=== PATIENT | male | born 1960 | race Caucasian/White ===

== ENCOUNTER → 2016-12-02 | Outpatient (CLI) | payer OTHER ==
[~2016-12-02] MED LIST: ALPR.5T; ASPI-983 PO; ATOR10TA PO; HYDR-32; NITR0.4T SL
--- OUTSIDE RECORDS SUMMARY | 2016-12-02 09:23 | XMS REPORT | Continuity of Care Document ---
Author Author Interface Organization Interface Address Unknown Phone Unavailable Problems Problem Status Onset Date Classification Date Reported Comments Source Medications Medication Details Route Status Patient Instructions Ordering Provider Order Date Source Allergies, Adverse Reactions, Alerts Substance Category Reaction Severity Reaction type Status Date Reported Comments Source Immunizations Immunization Date Given Site Status Last Updated Comments Source Results Order Name Results Value Reference Range Date Interpretation Comments Source Vital Signs Vital Sign Value Date Comments Source Encounters Location Location Details Encounter Type Encounter Number Reason For Visit Attending Provider ADM Date DC Date Status Source Procedures Procedure Code Date Perfomer Comments Source
--- NOTE | 2016-12-04 16:14 | ECHOCARDIOGRAPHY REPORT ---
PROCEDURE PHYSICIAN: LIZETT BURROWS DATE OF PROCEDURE: 12/02/2016 TWO DIMENSIONAL ECHOCARDIOGRAM REPORT PRIMARY PHYSICIAN: OTHER PHYSICIAN: REFERRING PHYSICIAN: [facility] ORDERING PHYSICIAN: INDICATION FOR THE PROCEDURE: Chest pain. MEASUREMENTS DERIVED VALUES LV DIAMETER (LAX) NORMALS NORMALS Diastolic 3.8 (3.6-5.2) Eject. Fract. 60% (60%+/-6%) Systolic (2.3-3.9) Diastolic Vol. % Shortening (0.22-0.42) Systolic Vol. Aortic Root IVS THICKNESS Diastolic 1.1 (0.6-1.1) LVPW THICKNESS Diastolic 1.1 (0.6-1.1) LA DIAMETER Systolic 2.2 (2.1-3.7) FINDINGS: 1. Technical quality is good. 2. The left ventricle is normal in size with mild hypertrophy noted at the base of the septum giving the septum a sigmoid shape. Systolic function appeared to be normal. Estimated ejection fraction 60%. 3. The left atrium is normal in size. No clot or thrombus were seen within the left atrium. 4. The right atrium and right ventricle are normal in size. No clot or thrombus were seen within the right side. 5. Mitral valve is normal in morphology with mild mitral regurgitation noted by color Doppler flow. No mitral valve prolapse. No mitral valve stenosis. Doppler across the mitral valve showed equalization of E and A, which is suggestive diastolic dysfunction. 6. Aortic valve is functioning normally. There is no significant aortic stenosis or regurgitation seen. 7. Tricuspid valve is normal in morphology with mild tricuspid regurgitation noted by color Doppler flow. Doppler across tricuspid valve estimated pulmonary artery pressure of 9+ right atrial pressure. 8. Pulmonic valve is functioning normally. 9. No pericardial effusion. IN CONCLUSION: 1. Normal left ventricular size and systolic function. Mild hypertrophy noted at the base of the septum giving the septum a sigmoid shape. Estimated ejection fraction 60%. Diastolic dysfunction is suggested by Doppler. 2. Mild mitral and tricuspid regurgitation. 3. Estimated pulmonary artery pressure of 15 mmHg. Job ID: [id number] Dictated Date: 12/03/2016 12:50:00 Tunnel Man Date: 12/04/2016 16:11:12 / vince
== END ==
LOC: CARD 09:19
PROVIDERS: ATTEND Internal Medicine Cardiovascular Disease
DX: R07.9 Chest pain, unspecified (principal); R06.09 Other forms of dyspnea; Z72.0 Tobacco use; Z82.49 Family history of ischemic heart disease and other diseases of the circulatory system
CPT/HCPCS: 93306

== ENCOUNTER → 2016-12-07 | Outpatient (CLI) | payer OTHER ==
[~2016-12-07] VITALS: Ht 175.3 cm; Wt 87.1 kg
[~2016-12-07] MED LIST changes: +CATHETER FLUSH 10 ML SYR IV PRN; +REGADENOSON 0.4 MG/5 ML SYR (LEXISCAN) IV ONE
[2016-12-07 13:18] VITALS: BP 149/99
--- NOTE | 2016-12-08 08:15 | STRESS TEST ---
PROCEDURE PHYSICIAN: LIZETT BURROWS DATE OF PROCEDURE: 12/07/2016 LEXISCAN MYOVIEW STRESS TEST REPORT: REFERRING PHYSICIAN: [facility] INDICATION: 1. Chest pain. 2. Dyspnea. BASELINE HEART RATE: 81 BASELINE BLOOD PRESSURE: 149/99. BASELINE EKG: Sinus rhythm with no ischemic changes. IN SUMMARY: The patient was injected with 10.53 mCi of technetium 99 Myoview and the resting images were obtained. Then the patient received 0.4 mg of Lexiscan followed by 28.4 mCi of technetium 99 Myoview. Throughout the test, there were no EKG changes. The resting and stress images were reviewed and compared in the short axis, horizontal long axis, and vertical long axis views. Review of the images showed reversible ischemia involving the mid to apical inferior wall, inferolateral wall. SSS is 9, SDS 3, TID value 0.99. On the gated images, the left ventricle appeared to be normal size with normal contractility. Calculated ejection fraction 56%. IN CONCLUSION: 1. The patient tolerated Lexiscan well. 2. Diaphragmatic attenuation affecting the quality of the images. There is questionable reversible ischemia involving the mid to apical inferior wall and inferolateral wall. 3. Normal left ventricular size with normal contractility. Calculated ejection fraction 56%. Job ID: [id number] Dictated Date: 12/07/2016 16:14:27 Home Security Professional Date: 12/08/2016 08:12:13 / vince
== END ==
LOC: CARD 11:49
PROVIDERS: ATTEND Physician Assistant
DX: R07.9 Chest pain, unspecified (principal); R06.09 Other forms of dyspnea; Z72.0 Tobacco use; Z82.49 Family history of ischemic heart disease and other diseases of the circulatory system
CPT/HCPCS: 78452; 93017

== ENCOUNTER 2016-12-14 11:56 | Day surgery (SDC) | payer SELFPAY ==
[~2016-12-14] VITALS: Ht 175.3 cm; Wt 82.6 kg
[2016-12-14] VITALS (11 sets, daily range): BP systolic 130–153; BP diastolic 50–98
[~2016-12-14 11:56] MED LIST changes: -ASPI-983 PO; -ATOR10TA PO; -CATHETER FLUSH 10 ML SYR IV PRN; -NITR0.4T SL; -REGADENOSON 0.4 MG/5 ML SYR (LEXISCAN) IV ONE
[2016-12-14] MEDS ORDERED: LIDOCAINE 1% INJ 20 ML (XYLOCAINE) VIAL ONE (12:01)
[2016-12-14] MEDS ORDERED: HEParin (CATH LAB) 2,000 ML IV ONE (12:01)
[2016-12-14] MEDS ORDERED: NS IV 1000 ML 1,000 ML ONE (12:01)
[2016-12-14] MEDS: NS IV 1000 ML 1,000 ML IV SCH ×3 (12:50→18:06)
[2016-12-14 12:51] LABS: MEAN PLATELET VOLUME 10.6 FL (7.4-10.4); RED BLOOD COUNT 4.52 10^6/uL (4.35-5.85); RED CELL DISTRIBUTION WIDTH 13.4 % (10.0-14.5); WHITE BLOOD COUNT 7.7 10^3/uL (4.3-11.0)
[2016-12-14 13:02] LABS: INR 0.9 (0.8-1.4); PROTHROMBIN TIME PATIENT 11.9 SEC (12.2-14.7)
[2016-12-14 13:13] LABS: ALANINE AMINOTRANSFERASE 17 U/L (0-55); ALBUMIN 4.1 G/DL (3.2-4.5); ANION GAP 8 MMOL/L (5-14); ASPARTATE AMINO TRANSFERASE 17 U/L (5-34); BILIRUBIN,TOTAL 0.2 MG/DL (0.1-1.0); BLOOD UREA NITROGEN 17 MG/DL (7-18); BUN/CREATININE RATIO 17; CARBON DIOXIDE 24 MMOL/L (21-32); CHLORIDE 111 MMOL/L (98-107); CHOLESTEROL 174 MG/DL (< 200); DIRECT LDL 93 MG/DL (1-129); GFR ESTIMATED > 60; GLUCOSE 114 MG/DL (70-105); POTASSIUM 3.9 MMOL/L (3.6-5.0); SODIUM 143 MMOL/L (135-145); TOTAL PROTEIN 6.8 G/DL (6.4-8.2); TRIGLYCERIDES 200 MG/DL (<150); VLDL CHOLESTEROL 40 MG/DL (5-40)
[2016-12-14] MEDS ORDERED: FLU TRIvalent (5 YOA+) 2016-17 (AFLURIA) 0.5 ML IM ONE (13:15)
--- NOTE | 2016-12-14 13:17 | Diagnostic Imaging Report ---
EXAMINATION: Portable upright radiograph of the chest. INDICATION: Dyspnea. Abnormal stress test. COMPARISON: 02/01/2009. FINDINGS: The lungs appear clear. The heart size is normal. No effusion or pneumothorax. The mediastinum and lisa appear unremarkable. IMPRESSION: Unremarkable exam. Dictated by: Dictated on workstation # [id number]
[2016-12-14] MEDS ORDERED: fentaNYL INJECTION 100 MCG/2 ML AMP ONE ×2 (13:24→14:00)
[2016-12-14] MEDS ORDERED: MIDAZOLAM 5 MG/5 ML (VERSED) VIAL ONE ×2 (13:24→14:00)
[2016-12-14] MEDS ORDERED: diphenhydrAMINE 50 MG/ML INJ (BENADRYL) ONE (13:39)
[2016-12-14] MEDS ORDERED: methylPREDNISolone 125 MG (Solu-MEDROL) VIAL ONE (13:39)
[2016-12-14] MEDS ORDERED: NITROGLYCERIN DRIP 25 MG/D5W 250 ML IV ONE (14:00)
[2016-12-14] MEDS ORDERED: HEParin 1000 UNIT/ML (10ML VIAL) FOR BOLUS ONE (14:01)
--- NOTE | 2016-12-14 14:41 | Discharge Inst-Post CATH ---
Discharge Inst-CATH Post Cardiac Cath D/C Inst Follow Up/Plan Appointment with Dr Amezcua's office in 2-4 weeks CARDIAC CATH DISCHARGE INSTRUCTIONS *Hold Metformin for 48 hours post heart cath. ACTIVITY * Go Home directly and rest. * Limit activity of the leg (or wrist if it was used) for 7 days including aerobics, swimming, jogging, bicycling, etc. * Restrict stair-climbing for 7 days if possible, if not, climb up with your non -cath leg, then bring together on the same step. * Avoid lifting, pushing, pulling or excessive movement of the affected extremity for 7 days. * Customary sexual activity may be resumed after 2 days-use caution not to use a position that strains or causes pain to the affected extremity. * No driving for 24 hours. * NO SMOKING. * Avoid straining for bowel movements for 7 days. * Gentle walking on level ground is allowed. * Returning to work will depend on the type of procedure and the results. Your doctor will discuss this with you. CALL YOUR DOCTOR FOR ANY OF THE FOLLOWING: *If bleeding from the puncture site occurs- Apply gentle pressure to site with clean cloth and call your doctor or EMS. * If a knot or lump forms under the skin, increases in size, or causes pain. * If bruising appears to be worsening or moving further down your leg instead of disappearing. * Temperature above 101 F. CARE OF YOUR GROIN INCISION; * Bruising or purple discoloration of the skin near the puncture site is common. * You may shower only, no bathtub bathing for 5 days. Be careful to avoid slipping as your leg may feel stiff. * If a closure device was used on your femoral artery, please see the attached guide regarding care of the device and your leg. * REMOVE the dressing from your groin the next day after your procedure in the shower. CARE OF YOUR WRIST INCISION; * Bruising or purple discoloration of the skin near the puncture site is common. * You may shower. * DO NOT submerge wrist. * Remove dressing in 24 hours. LIZETT AMEZCUA MD Dec 14, 2016 14:41
[2016-12-14] MEDS ORDERED: PATIENT MAY USE OWN MEDS, ALL PO SCH (14:45)
[2016-12-14] MEDS ORDERED: ASPIRIN E.C. 325 MG (ECOTRIN) TABLET PO NR (15:00)
[2016-12-14] MEDS ORDERED: oxyCODONE/APAP 5/325MG (PERCOCET 5) TABLET PO NR (18:00)
[2016-12-15] VITALS: BP 147/94
[2016-12-15] MEDS: oxyCODONE/APAP 5/325MG (PERCOCET 5) TABLET PO PRN ×2 (00:21→08:17)
[2016-12-15] MEDS: NS IV 1000 ML 1,000 ML IV SCH (00:22)
[2016-12-15 04:00] VITALS: BP 106/67
[2016-12-15] MEDS ORDERED: NITR0.4T SL (08:23)
[2016-12-15] MEDS ORDERED: ATOR10TA PO (08:23)
[2016-12-15] MEDS ORDERED: ASPI-983 PO (08:23)
--- NOTE | 2016-12-15 08:26 | Cardiology Progress Note ---
Subjective Subjective/Events-last exam Patient is laying down in bed, still having some groin discomfort, no hematoma. Mild chest pain on and off Review of Systems General: No Chills, No Night Sweats, No Fatigue, No Malaise, No Appetite, No Other HEENT: No Head Aches, No Visual Changes, No Eye Pain, No Ear Pain, No Dysphasia , No Sinus Congestion, No Post Nasal Drip, No Sore Throat, No Other Pulmonary: No Dyspnea, No Cough, No Pleuritic Chest Pain, No Other Cardiovascular: : Chest PainNo: Edema, Lt Headedness, Orthopnea, Other, Palpitations, Paroxysmal Noc. Dyspnea Objective-Cardiology Exam Last Set of Vital Signs Vital Signs 12/15/16 12/15/16 04:00 08:18 Temp 97.5 Pulse 71 Resp 14 B/P 106/67 Pulse Ox 92 O2 Delivery Room Air Capillary Refill : Less Than 3 Seconds I&O Bad tableGeneral: Alert, Oriented X3, Cooperative HEENT: Atraumatic, PERRLA Neck: Supple, No JVD, No Thyromegaly Lungs: Clear to Auscultation, Normal Air Movement Heart: Regular Rate, Normal S1, Normal S2, No Murmurs Abdomen: Normal Bowel Sounds, Soft, No Tenderness, No Hepatosplenomegaly, No Masses Extremities: No Clubbing, No Cyanosis, No Edema, Normal Pulses, No Tenderness/ Swelling Skin: No Rashes, No Breakdown, No Significant Lesion Neuro: Normal Gait, Normal Speech, Strength at 5/5 X4 Ext, Normal Tone, Sensation Intact Psych/Mental Status: Mental Status NL, Mood NL Results Lab Laboratory Tests 12/14/16 12:43 A/P-Cardiology Admission Diagnosis Chest pain nonspecific neurology Coronary artery disease Hyperlipidemia Tobaccoism Assessment/Plan Chest pain nonspecific etiology secondary to coronary artery disease Coronary artery disease, total occlusion of the right coronary artery receiving collaterals from the left system failed attempt for intervention to the chronic total occlusion, medical therapy is recommended Mild hyperlipidemia, I will start on Lipitor 10 mg an attempt to maximize medical therapy Tobaccoism educated on smoking cessation Patient was started on solid 1 nitroglycerin as needed Clinical Quality Measures DVT/VTE Risk/Contraindication: Risk Factor Score Per Nursin RFS Level Per Nursing on Admit: 2=Moderate LIZETT BURROWS MD Dec 15, 2016 08:26
[2016-12-15] MEDS ORDERED: ASPIRIN E.C. 81 MG (ECOTRIN) TAB PO SCH (09:00)
[2016-12-15 12:00] VITALS: BP 142/91
--- NOTE | 2016-12-15 13:29 | CARDIAC CATHETERIZATION ---
PROCEDURE PHYSICIAN: LIZETT BURROWS DATE OF PROCEDURE: 12/14/2016 BRIEF HISTORY: Mr. Robertson is a 56-year-old gentleman with history of hypertension, hyperlipidemia. He has a strong family history of heart disease, has an abnormal stress test. He was scheduled for left heart catheterization, possible PTCA. PROCEDURE NOTE: After explaining the procedure to the patient, all pros and cons were explained. All questions were answered. The patient signed a consent, then he was placed on the cardiac catheterization laboratory. The right groin was prepped in a sterile fashion. Local anesthesia applied to right groin. 6-[place]cuadorean sheath was placed in the right femoral artery. Combination of right and left Clayton catheter were used to access the right and left coronary system. Multiple views were obtained. Pigtail catheter advanced to the left ventricular cavity. Pressure was measured, no left ventriculogram was done. Pullback LV to aorta was done. At that point, the patient was noted to have total occlusion of the right coronary artery. I proceeded with attempts for angioplasty. The patient was given 5000 unit of heparin. FR guide was used, then I used multiple different wires using BMW, Whisper, Extra support and ChoICE PT floppy without success in crossing the lesion. I even used a balloon 2.0 x 15 mm to stabilized the guide, advanced to the proximal right coronary artery and inflated to 4 atmosphere and attempted to advance the wire without success. At this point the procedure was aborted. Angiogram showed no complication. FINDINGS: HEMODYNAMICS: LV pressure 133/13, end-diastolic pressure of 30, aortic pressure 142/94, end-diastolic mean of 170. ANATOMY: 1. Left main coronary artery is bifurcating to left anterior descending and left circumflex artery with no obstructive disease. 2. The left anterior descending artery is moderate in size with mild irregularity. No significant obstructive disease. 3. The left circumflex artery is moderate in size with mild disease, nonobstructive disease. 4. Right coronary artery has a long area of severe stenosis/total occlusion getting filled by collaterals through the right and from the left system. I attempted with multiple wires and using balloon angioplasty to cross the subtotal occlusion without success. This is considered high risk procedure. Potential complication. I did not want to proceed with any further intervention, especially with good results and the collaterals. CONCLUSION: 1. Total occlusion of the right coronary artery, getting filled by intercoronary collateral from the right and from the left system. Attempt to cross the total occlusion with the wire has failed, in addition to the use of balloon support. 2. Mild disease in the LAD and circumflex artery, giving collateral to the right coronary system. DISCUSSION AND RECOMMENDATION: Medical therapy is recommended. No intervention is needed. Job ID: [id number] Dictated Date: 12/14/2016 14:46:41 Animal Care Service Worker Date: 12/15/2016 13:22:31 / yosi
--- NOTE | 2016-12-15 13:32 | DISCHARGE SUMMARY ---
PROCEDURE PHYSICIAN: LIZETT BURROWS DATE OF PROCEDURE: 12/14/2016 BRIEF HISTORY: Mr. Robertson is a 56-year-old gentleman with history of hypertension, hyperlipidemia. He has a strong family history of heart disease, has an abnormal stress test. He was scheduled for left heart catheterization, possible PTCA. PROCEDURE NOTE: After explaining the procedure to the patient, all pros and cons were explained. All questions were answered. The patient signed a consent, then he was placed on the cardiac catheterization laboratory. The right groin was prepped in a sterile fashion. Local anesthesia applied to right groin. 6-[place] sheath was placed in the right femoral artery. Combination of right and left Clayton catheter were used to access the right and left coronary system. Multiple views were obtained. Pigtail catheter advanced to the left ventricular cavity. Pressure was measured, no left ventriculogram was done. Pullback LV to aorta was done. At that point, the patient was noted to have total occlusion of the right coronary artery. I proceeded with attempts for angioplasty. The patient was given 5000 unit of heparin. FR guide was used, then I used multiple different wires using BMW, Whisper, Extra support and ChoICE PT floppy without success in crossing the lesion. I even used a balloon 2.0 x 15 mm to stabilized the guide, advanced to the proximal right coronary artery and inflated to 4 atmosphere and attempted to advance the wire without success. At this point the procedure was aborted. Angiogram showed no complication. FINDINGS: HEMODYNAMICS: LV pressure 133/13, end-diastolic pressure of 30, aortic pressure 142/94, end-diastolic mean of 170. ANATOMY: 1. Left main coronary artery is bifurcating to left anterior descending and left circumflex artery with no obstructive disease. 2. The left anterior descending artery is moderate in size with mild irregularity. No significant obstructive disease. 3. The left circumflex artery is moderate in size with mild disease, nonobstructive disease. 4. Right coronary artery has a long area of severe stenosis/total occlusion getting filled by collaterals through the right and from the left system. I attempted with multiple wires and using balloon angioplasty to cross the subtotal occlusion without success. This is considered high risk procedure. Potential complication. I did not want to proceed with any further intervention, especially with good results and the collaterals. CONCLUSION: 1. Total occlusion of the right coronary artery, getting filled by intercoronary collateral from the right and from the left system. Attempt to cross the total occlusion with the wire has failed, in addition to the use of balloon support. 2. Mild disease in the LAD and circumflex artery, giving collateral to the right coronary system. DISCUSSION AND RECOMMENDATION: Medical therapy is recommended. No intervention is needed. FINAL DIAGNOSES: 1. Coronary artery disease. 2. Hypertension. 3. Hyperlipidemia. 4. Tobaccoism. Job ID: [id number] Dictated Date: 12/14/2016 14:46:41 Squaring Shear Operator Date: 12/15/2016 13:29:16/yosi
[2016-12-15 15:25] VITALS: BP 123/80
--- NOTE | 2016-12-22 08:32 | Cardiac Procedure Note-CS/ASA ---
Pre-Procedure Note Pre-Op Procedure Note H&P Reviewed The H&P was reviewed, patient examined and no changes noted. Date H&P Reviewed: Dec 14, 2016 Time H&P Reviewed: 08:32 Conscious Sedation Pre-Proced Time Reviewed: 08:32 ASA Class: 3 Airway Mallampati Classification: ([place] appropriate class) I. II. III, IV Lungs Heart ASA score ASA 1: a normal healthy patient ASA 2: a patient with a mild systemic disease (mid diabetes, controlled hypertension, obesity x ASA 3: a patient with a severe systemic disease that limits activity (angina , COPD, prior Myocardial infarction) ASA 4: a patient with an incapacitating disease that is a constant threat to life (CHF, renal failure) ASA 5: a moribund patient not expected to survive 24 hrs. (ruptured aneurysm) ASA 6: a declared brain patient whose organs are being harvested. For emergent operations, add the letter E after the classification Grade 3 Sedation Plan: Analgesia, Amnesia, Plan communicated to team members, Discussed options with patient/fam, Discussed risks with patient/fam Note The patient is an appropriate candidate to undergo the planned procedure, sedation, and anesthesia. The patient immediately re-assessed prior to indication. LIZETT BURROWS MD Dec 22, 2016 08:32
== END 2016-12-15 15:25 ==
LOC: CATH 11:56 → ICU 15:00 → CATH 12-15 15:25
PROVIDERS: ATTEND Internal Medicine Cardiovascular Disease
DX: I25.10 Atherosclerotic heart disease of native coronary artery without angina pectoris (principal); I25.82 Chronic total occlusion of coronary artery; R94.39 Abnormal result of other cardiovascular function study; I10 Essential (primary) hypertension; E78.5 Hyperlipidemia, unspecified; R07.89 Other chest pain; Z79.899 Other long term (current) drug therapy; Z72.0 Tobacco use; Z82.49 Family history of ischemic heart disease and other diseases of the circulatory system
CPT/HCPCS: 36415; 71010; 80053; 80061; 85027; 85347; 85610; 85730; 87081; 93005; 93458

== ENCOUNTER → 2017-06-12 | Outpatient (CLI) | payer OTHER ==
[~2017-06-12] MED LIST changes: +ASPI-983 PO; +ATOR10TA PO; +NITR0.4T SL
--- NOTE | 2017-06-12 10:51 | Diagnostic Imaging Report ---
PA and lateral views of chest. INDICATION: Shortness of breath. FINDINGS: The lungs are hyperinflated with no focal infiltrate. The heart size is normal. No effusion or pneumothorax. The mediastinum and lisa appear unremarkable. IMPRESSION: Hyperinflated clear lungs. Dictated by: Dictated on workstation # [id number]
--- NOTE | 2017-06-12 10:55 | Diagnostic Imaging Report ---
3 views of the lumbar spine. INDICATION: Degenerative changes. FINDINGS: There is minimal right convexity scoliosis centered around L1/L2. There is a grade 1 retrolisthesis of L3 over L4. The vertebral body heights are preserved. There is a prominent anterior osteophytes at multiple levels. Prominent degenerative sclerotic changes at the facet joints of the lower lumbar spine seen. The SI joints appear grossly unremarkable. Surgical clips in the upper right abdomen are seen. There are left flank calcifications which could relate to kidney stones. IMPRESSION: Minimal right convexity scoliosis around L1/L2 level. There are prominent degenerative disc and facet changes mostly involving the mid to lower lumbar spine and grade 1 retrolisthesis of L3 over L4. Dictated by: Dictated on workstation # [id number]
== END ==
LOC: RAD 09:21
PROVIDERS: ATTEND Surgery
DX: M51.36 Other intervertebral disc degeneration, lumbar region (principal); N20.0 Calculus of kidney
CPT/HCPCS: 71020; 72100

== ENCOUNTER → 2018-02-21 | Outpatient (CLI) | payer SELFPAY ==
[2018-02-21 17:26] LABS: CHOLESTEROL 138 MG/DL (< 200); HDL CHOLESTEROL 47 MG/DL (40-60); TRIGLYCERIDES 65 MG/DL (<150); VLDL CHOLESTEROL 13 MG/DL (5-40)
[2018-02-22 16:26] LABS: ALANINE AMINOTRANSFERASE 11 U/L (0-55); ALBUMIN 4.2 GM/DL (3.2-4.5); ALKALINE PHOSPHATASE 76 U/L (40-136); BILIRUBIN,TOTAL 0.8 MG/DL (0.1-1.0); BUN/CREATININE RATIO 16; CARBON DIOXIDE 23 MMOL/L (21-32); CHLORIDE 109 MMOL/L (98-107); CREATININE SERUM 1.06 MG/DL (0.60-1.30); GFR ESTIMATED > 60; GLUCOSE 105 MG/DL (70-105); POTASSIUM 4.2 MMOL/L (3.6-5.0); SODIUM 140 MMOL/L (135-145); TOTAL PROTEIN 6.9 GM/DL (6.4-8.2)
== END ==
LOC: LAB 16:46
PROVIDERS: ATTEND Physician Assistant
DX: R07.89 Other chest pain (principal); E78.5 Hyperlipidemia, unspecified; I34.0 Nonrheumatic mitral (valve) insufficiency; F43.10 Post-traumatic stress disorder, unspecified; Z72.0 Tobacco use
CPT/HCPCS: 36415; 80053; 80061

== ENCOUNTER → 2018-03-02 | Outpatient (CLI) | payer SELFPAY | LOC: CARD 07:56 | PROVIDERS: ATTEND Physician Assistant | DX: R07.89 Other chest pain (principal); E78.5 Hyperlipidemia, unspecified; I34.0 Nonrheumatic mitral (valve) insufficiency; F43.10 Post-traumatic stress disorder, unspecified; Z72.0 Tobacco use | CPT/HCPCS: 93225; 93226 ==

== ENCOUNTER → 2018-04-30 | Outpatient (CLI) | payer SELFPAY ==
[2018-04-30 13:49] LABS: ALANINE AMINOTRANSFERASE 11 U/L (0-55); ALBUMIN 3.8 GM/DL (3.2-4.5); ALKALINE PHOSPHATASE 73 U/L (40-136); BILIRUBIN,TOTAL 0.8 MG/DL (0.1-1.0); BUN/CREATININE RATIO 14; CALCIUM 8.7 MG/DL (8.5-10.1); CARBON DIOXIDE 23 MMOL/L (21-32); CHLORIDE 112 MMOL/L (98-107); CHOLESTEROL 147 MG/DL (< 200); GFR ESTIMATED > 60; GLUCOSE 109 MG/DL (70-105); HDL CHOLESTEROL 37 MG/DL (40-60); SODIUM 142 MMOL/L (135-145); TOTAL PROTEIN 6.2 GM/DL (6.4-8.2); TRIGLYCERIDES 110 MG/DL (<150); VLDL CHOLESTEROL 22 MG/DL (5-40)
== END ==
LOC: CARD 12:40
PROVIDERS: ATTEND Internal Medicine Cardiovascular Disease
DX: I10 Essential (primary) hypertension (principal); E78.2 Mixed hyperlipidemia; R07.89 Other chest pain; R00.2 Palpitations; R06.02 Shortness of breath; J45.909 Unspecified asthma, uncomplicated
CPT/HCPCS: 36415; 80053; 80061; 93306

== ENCOUNTER 2020-11-23 22:17 | Emergency (ER) | payer MEDICARE ==
[~2020-11-23] VITALS: Ht 175 cm; Wt 79.4 kg
[~2020-11-23 22:17] MED LIST changes: +ASPI-1238 PO; -ASPI-983 PO
--- NOTE | 2020-11-23 23:15 | ED Neck-Back Pain/Injury ---
General Chief Complaint: Head/Cervical Problems Stated Complaint: NECK PAIN Source of Information: Patient History of Present Illness Date Seen by Provider: Nov 23, 2020 Time Seen by Provider: 22:35 Initial Comments PT ARRIVES VIA POV FROM HOME C/O POSTERIOR NECK PAIN--WORSE ON RIGHT PAIN RADIATES TO POSTERIOR SCALP PT STATES HIS NECK STARTED HURTING OVER A WEEK AGO--NO KNOWN INJURY STATES HE WENT TO WALK-IN CLINIC AT [facility] LAST WEEK FOR THIS PROBLEM AND WAS PRESCRIBED A STEROID AND FLEXERIL. STATES THOSE HELPED, AND STATES HE FINISHED MEDICATIONS ON 11/19/20--HOWEVER, PER MED RECONCILIATION, PT FILLED RX'S FOR FLEXERIL, MELOXICAM, GABAPENTIN ON 10/02/20 AT [facility]. NO RX'S FILLED SINCE THEN. ALSO FILLED THESE SAME RX'S IN MAY. STATES THAT THE NIGHT BEFORE LAST, HE TILTED HIS HEAD UP TO KISS HIS , AND HIS NECK "SNAPPED" AND HAS HAD INCREASED NECK PAIN SINCE THEN NO PARESTHESIAS OR MOTOR DEFICITS. NO RADICULAR PAIN TOOK 2 IBUPROFEN AT 0800 THIS AM, AND TOOK A TEDDY BACK AND BODY PILL AT NOON TODAY--NO RELIEF HAS HAD PRIOR PROBLEMS WITH NECK IN THE PAST, BUT NO SURGERY ON NECK Other Comments PCP: [facility] POSTAL SUPERINTENDENT: DR. BURROWS Allergies and Home Medications Allergies Coded Allergies: No Known Allergies (Verified Allergy, Unknown, 02/16/07) Home Medications Aspirin 81 Mg Tablet.dr 81 MG PO DAILY Prescribed by: LIZETT BURROWS on 12/15/16822 Atorvastatin Calcium 10 Mg Tablet, 10 MG PO DAILY Prescribed by: LIZETT BURROWS on 12/15/16822 Cyclobenzaprine HCl 10 Mg Tablet, 10 MG PO Q8H PRN for SPASMS Prescribed by: DORIAN HERRMANN on 11/23/202357 Meloxicam 15 Mg Tablet, 15 MG PO DAILY Prescribed by: DORIAN HERRMANN on 11/23/202357 Nitroglycerin 0.4 Mg Tab.subl, 0.4 MG SL Q5M PRN for CHEST PAIN Prescribed by: LIZETT BURROWS on 12/15/16822 Patient Home Medication List Home Medication List Reviewed: Yes Review of Systems Constitutional: no symptoms reported EENTM: no symptoms reported Respiratory: no symptoms reported Cardiovascular: no symptoms reported Gastrointestinal: no symptoms reported Genitourinary: no symptoms reported Musculoskeletal: see HPI, neck pain Skin: no symptoms reported Psychiatric/Neurological: No Symptoms Reported; Denies Numbness, Denies Paresthesia, Denies Tingling, Denies Weakness Past Aiuddpq-Ospizx-Wipjfv Hx Past Med/Social Hx: Reviewed and Corrections made Patient Social History Alcohol Use: Past History ([place] ) Recreational Drug Use: No Smoking Status: Current Everyday Smoker (1 PPD) Type Used: Cigarettes Recent Foreign Travel: No Contact w/Someone Who Travel: No Past Medical History Surgeries: Yes (ANAL "FISTULA", KIDNEY STONE REMOVAL; CARDIAC CATH) Cardiac, Gallbladder, Rectal, Renal Respiratory: Yes Asthma Cardiac: Yes Coronary Artery Disease, High Cholesterol Neurological: No Reproductive Disorders: No Genitourinary: Yes Kidney Stones Gastrointestinal: No Musculoskeletal: Yes (NECK PAIN ) Chronic Back Pain Endocrine: No HEENT: No Cancer: No Psychosocial: No Integumentary: No Blood Disorders: No Family Medical History PAST SURGICAL HISTORY: -CARDIAC CATH 11/2016--OCCLUDED RCA WITH COLLATERAL CIRCULATION, MILD CAD IN OTHER VESSELS--NO INTERVENTION; DR. BURROWS -ANAL FISTULA REPAIR -KIDNEY STONE REMOVAL Physical Exam Vital Signs Vital Signs - First Documented 11/23/20 11/24/20 22:30 00:29 Temp 36.6 Pulse 82 Resp 18 B/P (MAP) 176/95 (122) Pulse Ox 98 O2 Delivery Room Air Capillary Refill : Height, Weight, BMI Height: 5'9.00" Weight: 182lbs. 2.0oz. [id number]; 26.9 BMI Method: General Appearance: No Apparent Distress, WD/WN Neck: Limited Range of Motion, Tender Lateral, Tender Midline, Other (DIFFUSE TENDERNESS OF POSTERIOR CERVICAL AREA--RIGHT > LEFT WITH MUSCLE SPASMS AND LIMITED ROM DUE TO PAIN . ) Cardiovascular: Regular Rate, Rhythm, Normal Peripheral Pulses Respiratory: Normal Breath Sounds Back: Normal Inspection Extremity: Normal Inspection Neurologic/Psychiatric: Alert, Oriented x3, No Motor/Sensory Deficits, Normal Mood/Affect, wood machine carver II-XII Norm as Tested Skin: Normal Color, Warm/Dry Progress/Results/Core Measures Results/Orders My Orders Orders - DORIAN HERRMANN DO Ct Cervical Spine Wo (11/23/20 22:48) Ketorolac Injection (Toradol Injection) (11/24/20 00:15) Orphenadrine Inj (Ed Only) (Norflex Inje (11/24/20 00:15) Medications Given in ED Current Medications Medications Dose Ordered Sig/Lamont Route Start Time Stop Time Status Last Admin Dose Admin Ketorolac Tromethamine 60 mg ONCE ONCE IM 11/24/20 00:15 11/24/20 00:16 DC 11/24/20 00:09 60 MG Orphenadrine Citrate 60 mg ONCE ONCE IM 11/24/20 00:15 11/24/20 00:16 DC 11/24/20 00:09 60 MG Vital Signs/I&O 11/23/20 11/24/20 22:30 00:29 Temp 36.6 36.6 Pulse 82 78 Resp 18 16 B/P (MAP) 176/95 (122) 139/97 (122) Pulse Ox 98 O2 Delivery Room Air Room Air Progress Progress Note : Progress Note GIVEN NORFLEX AND TORADOL WITH IMPROVEMENT IN SYMPTOMS Diagnostic Imaging Comments CT CERVICAL SPINE--NO ACUTE PROCESS, MINIMAL SPINAL CANAL STENOSIS AT C4-C5--PER [facility] VIA FAX AT [id number] Reviewed: Reviewed by Me Departure Impression Primary Impression: Neck pain Additional Impression: Neck sprain Disposition: HOME, SELF-CARE Condition: Stable Departure-Patient Inst. Referrals: [facility]/ (PCP) Primary Care Physician LINDY ROGER (Family) Primary Care Physician Patient Instructions: Neck Sprain (DC), Generalized Neck Pain (DC) Add. Discharge Instructions: MOIST HEAT TO AREA AT 20 MINUTE INTERVALS FOLLOW UP WITH YOUR DR IN 5-7 DAYS FOR FURTHER CARE All discharge instructions reviewed with patient and/or family. Voiced understanding. Scripts Meloxicam (Mobic) 15 Mg Tablet 15 MG PO DAILY, #10 TAB Prov: DORIAN HERRMANN K DO 11/23/20 Cyclobenzaprine HCl (Cyclobenzaprine HCl) 10 Mg Tablet 10 MG PO Q8H PRN for SPASMS, #15 TAB 0 Refills Prov: MILTON HERRMANNA K DO 11/23/20 MILTON HERRMANNA Lisa DO Nov 23, 2020 23:15
[2020-11-23] MEDS ORDERED: MELO15TA14 PO (23:58)
[2020-11-23] MEDS ORDERED: CYCL10TA9 PO (23:58)
[2020-11-24] MEDS ORDERED: KETOROLAC 60 MG/2 ML VIAL IM ONE (00:15)
[2020-11-24] MEDS ORDERED: ORPHENADRINE 60 MG/2 ML (NORFLEX) AMP (ED ONLY) IM ONE (00:15)
[2020-11-24 00:29] VITALS: BP 139/97
--- NOTE | 2020-11-24 08:48 | Diagnostic Imaging Report ---
PROCEDURE: CT cervical spine without contrast. TECHNIQUE: Multiple contiguous axial images were obtained through the cervical spine without the use of intravenous contrast. Sagittal and coronal reformations were then performed. Auto Exposure Controls were utilized during the CT exam to meet ALARA standards for radiation dose reduction. INDICATION: Neck pain starting earlier in the morning. CORRELATION STUDY: None. FINDINGS: Reformatted images demonstrate straightening of the normal cervical lordosis. Alignment is otherwise relatively anatomic. There is slight loss of height of the C4 and C5 vertebral bodies. There is multilevel disc space narrowing, most severe at the C4-C5, C5-C6, and C6-C7 levels. Various degrees of reactive endplate sclerosis and osteophyte formation are noted, most severe at the C4-C5 and C5-C6 levels. Endplate spurring extends into bilateral foramina with resultant bilateral foraminal narrowing, moderate in severity. Posterior elements are intact and in normal alignment. Asymmetric facet arthropathy is greatest at the C4-C5 level on the left. Odontoid intact. Cervical cranial junction and occipital condyles are unremarkable. IMPRESSION: 1. Negative for acute fracture or traumatic subluxation of the cervical spine. 2. There are noted rather significant areas of multilevel cervical spondylosis, most severe at the C4-C5, C5-C6, and C6-C7 levels. Various degrees of foraminal narrowing owing to endplate spurring. Initial report by [facility]. Dictated by: Dictated on workstation # [id number]
== END 2020-11-24 00:29 | disposition home or self-care (01) ==
LOC: EDUNIT# 22:17 → ER 22:18
DX: S13.8XXA Sprain of joints and ligaments of other parts of neck, initial encounter (principal); E78.00 Pure hypercholesterolemia, unspecified; F17.210 Nicotine dependence, cigarettes, uncomplicated; Z95.9 Presence of cardiac and vascular implant and graft, unspecified; Z79.82 Long term (current) use of aspirin; X58.XXXA Exposure to other specified factors, initial encounter
CPT/HCPCS: 72125

== ENCOUNTER 2023-08-30 06:29 | Day surgery (SDC) | payer MEDICARE ==
[~2023-08-30] VITALS: Ht 175 cm; Wt 77.7 kg
[2023-08-30] VITALS (10 sets, daily range): BP systolic 120–155; BP diastolic 82–99
[~2023-08-30 06:29] MED LIST changes: +CYCL10TA25 PO; +GABA300S3 PO; +MECL-291 PO; +MELO15TA14 PO; +MTP100TCR PO; +RANO10005 PO; +RT-ALBUINH INH; +TMSL.4C PO
[2023-08-30] MEDS ORDERED: proPOfol INJECTION 200 MG/20 ML VIAL IV ONE (07:14)
[2023-08-30] MEDS ORDERED: ROCURONIUM 50 MG/5 ML VIAL IV ONE (07:14)
[2023-08-30] MEDS ORDERED: fentaNYL INJECTION 100 MCG/2 ML VIAL ONE (07:14)
[2023-08-30] MEDS ORDERED: LIDOCAINE PF 2% 5 ML VIAL ONE (07:14)
[2023-08-30] MEDS ORDERED: ONDANSETRON INJECTION 4 MG/2 ML (SDV) ONE (07:14)
[2023-08-30] MEDS ORDERED: MIDAZOLAM INJ 2 MG/2 ML VIAL ONE (07:15)
[2023-08-30] MEDS ORDERED: LIDOCAINE/EPI 1%-1:200,000 (XYLOCAINE) 30 ML VIAL ONE (07:21)
[2023-08-30] MEDS ORDERED: ceFAZolin INJECTION 2,000 MG in NS (IVPB) 50 ML 50 ML IV ONE (07:30)
[2023-08-30] MEDS: LACTATED RINGERS 1,000 ML 1,000 ML IV PRN ×3 (07:42→09:57)
--- NOTE | 2023-08-30 08:43 | Progress Note-Pre Operative ---
Pre-Operative Progress Note Date of Available H&P: Aug 03, 2023 Date H&P Reviewed: Aug 30, 2023 Time H&P Reviewed: 08:39 History & Physical: H&P Reviewed, Patient Examed, No changes noted Pre-Operative Diagnosis: Incarcerated right inguinal hernia (site marked), I ncarcerated umb hernia STEPHENIE VILLASEÑOR DO Aug 30, 2023 08:43
[2023-08-30] MEDS ORDERED: LIDOCAINE/EPI 1%-1:200,000 (XYLOCAINE) 30 ML VIAL INJ ONE (09:16)
[2023-08-30] MEDS ORDERED: PHENYLEPHRINE 100 MCG/ML 10 ML (ANESTHESIA) SYR ONE (09:28)
[2023-08-30] MEDS ORDERED: GLYCOPYRROLATE INJ 0.2 MG/ML 2 ML VIAL ONE ×2 (09:28→10:25)
[2023-08-30] MEDS ORDERED: NEOSTIGMINE 1 MG/1ML 10 ML VIAL ONE (10:25)
[2023-08-30] MEDS ORDERED: SEVOFLURANE (ULTANE) 15 ML INHAL SOLN ONE (10:27)
--- NOTE | 2023-08-30 10:48 | Anesthesia-General Post-Op ---
General Patient Condition Mental Status/LOC: Same as Preop Cardiovascular: Satisfactory Nausea/Vomiting: Absent Respiratory: Satisfactory Pain: Controlled Complications: Absent Post Op Complications Complications None Follow Up Care/Instructions Patient Instructions None needed. Anesthesia/Patient Condition Patient Condition Patient is doing well, no complaints, stable vital signs, no apparent adverse anesthesia problems. No complications reported per nursing. ISABELLA OG CRNA Aug 30, 2023 10:48
[2023-08-30] MEDS ORDERED: ONDANSETRON INJECTION 4 MG/2 ML (SDV) IVP PRN (11:00)
[2023-08-30] MEDS ORDERED: fentaNYL INJECTION 100 MCG/2 ML VIAL IVP ONE (11:00)
[2023-08-30] MEDS ORDERED: HYDROmorphone INJECTION 2 MG/ML VIAL IV ONE (11:00)
--- NOTE | 2023-08-30 11:51 | Progress Note-Post Operative ---
Post-Operative Progess Note Surgeon (s)/Lithographic Retoucher Apprentice (s) Surgeon STEPHENIE VILLASEÑOR DO Lithographic Retoucher Apprentice: Guilherme Nunn DO Pre-Operative Diagnosis Incarcerated right inguinal hernia (site marked), Incarcerated umb hernia Post-Operative Diagnosis Incarcerated right inguinal hernia Incarcerated umbilical hernia right cord lipoma Procedure & Operative Findings Date of Procedure 08/30/23 Procedure Performed/Findings Laparoscopic right inguinal herniarraphy with mesh placement - Robotic Open Umbilical herniarraphy Excision of cord lipoma After informed consent was obtained, the patient was brought to the operating room and placed on the operating table in a supine position. He was sterilely prepped and draped in a normal fashion. Local lidocaine was used to infiltrate the skin above the umbilicus. I made an incision with #11 blade, carried down to the skin into subcutaneous tissue and then deepened down the subcutaneous tissue with Bovie electrocautery down to the fascia. Fascia was entered through the umbilical hernia and bluntly entered the abdomen and swept a finger around. I then had to remove omentum and incarcerated fat out of the umbilical hernia with bovie cautery and blunt dissection. I then placed the Kii trocar port under direct visualization. Created pneumoperitoneum, able to visualize the hernia and took a picture of this and then placed two 8 mm ports about 10 cm on either side of the midline port using a local lidocaine, 11 blade for stab incision and then advanced the robotic port under direct visualization. Once this was in, I then placed the patient in Trendelenburg and then placed the working instruments, the fenestrated bipolar and the scissors. Looked on the left side and saw early signs of inguinal hernia. I could see an indirect hernia defect on the right side. Next, I came across the peritoneum approximately 8 cm away from the hernia defect, going across laterally starting lateral about 17cm and cutting toward the median umbilical ligament. I then carefully dissected the visceral peritoneum away and down and then in the midline, went through the parietal side and dissected down to the pubic tubercle, dissecting this down carefully pushing the peritoneum away, I was able to then visualize the pubic tubercle and Tray's ligament. I went 2 cm posterior and at this point, we then had a critical view of the dissection, able to dissect 2 cm across the midline to the right side, 2 cm posterior to the Tray's ligament, able to then parietalize the vas deferens and spermatic vessels right at the groove between Tray's and iliac vein and able to dissect, make sure there was no peritoneum between those two, able to see the indirect hernia space, took a picture of this, looked at the femoral space (no hernia seen). Then I carefully teased out the hernia sac and could visualize the indirect hernia space. Next I looked on the cord and cord structures. There was a small cord lipoma that I was able to reduce and cut off. This was then removed through the port to get it out of the peritoneal space. I could clearly see the inguinal canal and the indirect space. Next I carried the posterior lateral dissection all the way out and then placed a large Midwieght Bard 3DMax mesh. It laid in nicely, covered the hernia defect and the rest of the area. It was above the peritoneum, sutured it at the pubic tubercle with a 3-0 Vicryl suture and tied this off. This appeared to lay in very nicely and I also sutured another 3-0 Vicryl to hold it out laterally. I then brought down the pneumoperitoneum to about 8 mmHg and then started closing the peritoneum. Started laterally and used a 2-0 V-lock barbed suture to start a running stitch to close the peritoneum. I then used another 3-0 Vicryl figure of eight stitch to close the defect in the peritoneum from the hernia defect. This was closed nicely, took a picture of the closure at this point, then removed both needles had switched to a suture local company tanker driver from the scissors. The patient was then placed back supine, removed all ports under direct visualization, allowed pneumoperitoneum to escape and then closed the umbilical hernia with a "pants over shirt" closure. Closing the fascia with an 0 Vicryl suture. Copiously irrigated all incisions and then closed the two small 8 mm incisions with two interrupted 4-0 undyed Monocryl subcuticular stitches and closed the supraumbilical incision with three interrupted undyed Monocryl subcuticular stitch. Area was cleaned and dried. Dermabond was placed. The patient tolerated the procedure. The sponge, instrument and needle counts were correct at the end of the case. Dr. Nunn assisted during this surgery by making incisions, closing incisions, helping to identify anatomy and passing/retrieving suture and needles. Anesthesia Type GET Estimated Blood Loss Estimated blood loss (mL): scant Specimens/Packing Specimens Removed cord lipoma STEPHENIE VILLASEÑOR DO Aug 30, 2023 11:51
[2023-08-30] MEDS ORDERED: ACHD5005 PO (11:52)
--- NOTE | 2023-08-30 11:53 | Discharge Inst-Surgical ---
Discharge Inst-Surgical Depart Medication/Instructions New, Converted or Re-Newed RX: Transmitted to Pharmacy Patient Instructions Follow up Appt: Make appointment for 1 week. [phone] Instructions: No lifting greater than 20 pounds. No strenuous activity. May shower in 24 hours, no tub bath or soaking. Use incentive spirometer at home as directed. No Smoking Skin/Wound Care: May remove bandages in am. You need to leave the Dermabond on incision it will fall off on it's own. Symptoms to Report: Appetite Changes, Extremity Discoloration, Numbness/Tingling, Swelling Increased, Bleeding Excessive, Eyesight Changes, Pain Increased, Urine Color Change, Constipation(Persistent), Fever over 101 degree F, Pain/Pressure in chest, Urinating Difficulty, Cough Up/Vomit Blood, Heart Beat Irreg/Pounding, Pain/Pressure in jaw, Cramps in feet or legs, Lightheadedness, Pain/Pressure in shoulder, Diarrhea(Persistent), Memory Changes Suddenly, Questions/Concerns, Weight gain consecutive days, Dizziness/Fainting, Nausea/Vomiting, Shortness of Breath, Weight gain over 2 pounds If questions or concerns contact your physician Or seek help at emergency department. Activity Activity as Tolerated: Yes Activity Instructions: Avoid Stress to Incision Driving Instructions: No Driving/Refer to Dr. Welch Discharge Diet: No Restrictions Diet After 24 Hours: Clear Liquid if Nauseous If Any Problems/Questions/Issu: Contact Your Physician, Go to Emergency Room Skin/Wound Care Infection Signs and Symptoms: Increased Redness, Foul Odor of Wound, Increased Drainage, Skin Itchy or Has a Rash, Increased Swelling, Temperature Above 101 F Wound Care Comment: use heating pad to shoulder or neck tonight for pain Bathing Instructions: Shower Stitches/Caroline/Dermabond Dis: Dermabond STEPHENIE VILLASEÑOR DO Aug 30, 2023 11:53
== END 2023-08-30 12:30 | disposition home or self-care (01) ==
LOC: SDC 06:29 → EEVIPCON 08:30 → SDC 12:30
PROVIDERS: ATTEND Surgery
DX: K42.0 Umbilical hernia with obstruction, without gangrene (principal); K40.30 Unilateral inguinal hernia, with obstruction, without gangrene, not specified as recurrent; D17.6 Benign lipomatous neoplasm of spermatic cord; F17.210 Nicotine dependence, cigarettes, uncomplicated; Z28.310 Unvaccinated for COVID-19
CPT/HCPCS: 49594; 49650; 87081; C1781